=== PATIENT | female | born 2000 | race Two or more races ===

== ENCOUNTER 2025-08-19 13:57 | Outpatient (CLI) | payer MEDICAID ==
[2025-08-19 14:33] LABS: Hematocrit 37.7 % (36.0-46.0); Hemoglobin 13.1 g/dL (12.2-16.2); Mean Corpuscular Hemoglobin 32.3 pg (28.0-32.0); Mean Corpuscular Volume 93.0 fL (80.0-100.0); Nucleated Red Blood Cells % 0.1 %
[2025-08-20 15:07] LABS: Chlamydia Trachomatis, NAA Negative (Negative); Neisseria gonorrhoeae, NAA Negative (Negative)
== END 2025-08-19 17:00 | disposition home or self-care (01) ==
LOC: LAB 13:57
DX: Z34.80 Encounter for supervision of other normal pregnancy, unspecified trimester (principal); Z3A.00 Weeks of gestation of pregnancy not specified
CPT/HCPCS: 36415; 85025; 86780

== ENCOUNTER 2025-08-26 14:16 | Observation (INO) | payer MEDICAID, SELFPAY ==
[~2025-08-26] VITALS: Ht 165.1 cm; Wt 96.2 kg
[2025-08-26 15:02] LABS: Hematocrit 40.0 % (36.0-46.0); Hemoglobin 13.8 g/dL (12.2-16.2); Mean Corpuscular Hemoglobin 32.1 pg (28.0-32.0); Mean Corpuscular Volume 92.7 fL (80.0-100.0); Nucleated Red Blood Cells % 0.0 %
[2025-08-26 15:19] LABS: Alanine Aminotransferase 17 U/L (7-40); Albumin 4.1 g/dL (3.2-4.8); Anion Gap 10 (5-15); BUN/Creatinine Ratio 13.8 (10.0-20.0); Bilirubin, Total 0.4 mg/dL (0.2-1.0); Calcium 9.5 mg/dL (8.7-10.4); Carbon Dioxide 23 mmol/L (20-31); Chloride 106 mmol/L (98-107); Glucose 78 mg/dL (74-106); Potassium 3.8 mmol/L (3.5-5.1); Sodium 139 mmol/L (136-145); Total Protein 6.4 g/dL (5.7-8.2); Uric Acid 3.5 mg/dL (3.1-7.8)
[2025-08-26 15:20] LABS: Alkaline Phosphatase 128 U/L (46-116); Blood Urea Nitrogen 8 mg/dL (9-23); INR 0.9 (0.9-1.15); Partial Thromboplastin Time 26.0 SEC (24.5-34.5); Prothrombin Time 9.6 sec (9.3-11.8)
--- NOTE | 2025-08-26 15:23 | DVH ---
CLINICAL HISTORY: -induced hypertension. COMPARISON: US COMPLETE ANATOMY SCAN on DOS: 04/23/25 TECHNIQUE: biophysical profile was performed. Transabdominal sonographic images of the fetus were obtained. FINDINGS: The fetus is in cephalic position. heart rate measures 145 BPM. Amniotic fluid index measures 9.5 cm. The placenta is anterior in position without evidence of previa or abruption. Limited visualization of the cervix. The cervix appears grossly closed and measures 3.0 cm in length. BPP profile is an overall score of 8/8, with 2/2 points for breathing, with at least one episode of breathing over a 30 second duration during a 30 minute observation, 2/2 points for movements, with 3 or more discrete body or limb movements, 2/2 points for tone, with one or more episodes of extremity extension with return to flexion, or opening and closing of hand, and 2/2 points for amniotic fluid, with at least 1 pocket of amniotic fluid that measures 2 cm in 2 perpendicular planes. IMPRESSION: BPP score of 8/8.
[2025-08-26 16:19] LABS: Protein, Urine 7.1 mg/dL (1-14)
[2025-08-26 16:26] LABS: Urine Protein, UAD Negative (Negative)
--- NOTE | 2025-08-26 22:14 | DVHDS2 ---
Discharge Summary Date of Admission Aug 26, 2025 at 14:27 Date of Discharge: Aug 26, 2025 Admitting Diagnosis 37 weeks pressure rule out labor Wounds: none Labs/Diagnostic Data: Laboratory Results Test 08/26/25 14:43 08/26/25 14:42 White Blood Count 13.4 10^3/uL (4.4-10.8) Red Blood Count 4.31 10^6/uL (4.0-5.20) Hemoglobin 13.8 g/dL (12.2-16.2) Hematocrit 40.0 % (36.0-46.0) Mean Corpuscular Volume 92.7 fL (80.0-100.0) Mean Corpuscular Hemoglobin 32.1 pg (28.0-32.0) Mean Corpuscular Hemoglobin Concent 34.6 g/dL (32.0-36.0) Red Cell Distribution Width 13.9 % (11.8-14.3) Platelet Count 188 10^3/uL (140-450) Mean Platelet Volume 8.6 fL (6.9-10.8) Neutrophils (%) (Auto) 78.0 % (37.0-80.0) Lymphocytes (%) (Auto) 12.9 % (10.0-50.0) Monocytes (%) (Auto) 7.5 % (0.0-12.0) Eosinophils (%) (Auto) 1.0 % (0.0-7.0) Basophils (%) (Auto) 0.6 % (0.0-2.0) Neutrophils # (Auto) 10.5 10 ^3/uL (1.6-8.6) Lymphocytes # (Auto) 1.7 10 ^3/uL (0.4-5.4) Monocytes # (Auto) 1.0 10 ^3/uL (0-1.3) Eosinophils # (Auto) 0.1 10 ^3/uL (0-0.8) Basophils # (Auto) 0.1 10 ^3/uL (0-0.2) Nucleated Red Blood Cells 0.0 % Prothrombin Time 9.6 sec (9.3-11.8) Prothrombin Time INR 0.90 (0.9-1.15) Activated Partial Thromboplast Time 26.0 SEC (24.5-34.5) Sodium Level 139 mmol/L (136-145) Potassium Level 3.8 mmol/L (3.5-5.1) Chloride Level 106 mmol/L (98-107) Carbon Dioxide Level 23 mmol/L (20-31) Anion Gap 10 (5-15) Blood Urea Nitrogen 8 mg/dL (9-23) Creatinine 0.58 mg/dL (0.550-1.02) Glomerular Filtration Rate Calc 128 mL/min (>90) BUN/Creatinine Ratio 13.8 (10.0-20.0) Serum Glucose 78 mg/dL (74-106) Uric Acid 3.5 mg/dL (3.1-7.8) Calcium Level 9.5 mg/dL (8.7-10.4) Total Bilirubin 0.4 mg/dL (0.2-1.0) Aspartate Amino Transferase (AST) 22 U/L (13-40) Alanine Aminotransferase (ALT) 17 U/L (7-40) Alkaline Phosphatase 128 U/L (46-116) Total Protein 6.4 g/dL (5.7-8.2) Albumin 4.1 g/dL (3.2-4.8) Urine Color Light-yellow (Yellow) Urine Clarity Turbid (Clear) Urine pH 7.0 (5.0-9.0) Urine Specific [place] 1.008 (1.001-1.035) Urine Protein Negative (Negative) Urine Ketones Negative (Negative) Urine Blood Negative /uL (Negative) Urine Nitrite Negative (Negative) Urine Bilirubin Negative (Negative) Urine Urobilinogen Normal mg/dL (Negative) Urine Leukocyte Esterase 3+ /uL (Negative) Urine RBC 7 /hpf (0 - 4) Urine Microscopic WBC 2 /HPF (0-5) Urine Squamous Epithelial Cells Few /hpf (<5) Urine Bacteria Few /hpf (None Seen) Urine Creatinine 28.58 mg/dL (30.0-125.0) Urine Protein/Creatinine Ratio 0.25 Urine Glucose Normal mg/dL (Normal) Urine Total Protein 7.1 mg/dL (1-14) Other Laboratory Tests 08/26/25 14:43 Brief Hx & Hospital Course: NST reassuring Operations or Procedures NST BPP reassuring Condition at Discharge: Good Final Diagnosis/Problems List 37 + weeks reassuring Discharge Disposition: Home Discharge Instruct/Medications Diet: Regular Activity: No Restrictions, As Tolerated Follow Up/Referral: as scheduled Medications: resume home meds No Active Prescriptions or Reported Meds Discharge Statement: "Patient was advised to return to the ER or call 911 if any headaches, dizziness, shortness of breath, chest pain, abdominal pain, bleeding, fevers, or worsening of medical condition. Patient was counseled about treatment plan, medications, possible side effects, patientverbalized understanding. All questions were answered to the best of my ability. This discharge took greater then 30 minutes in planning, reviewing documentation, counseling the patient, and discussing with other team members." ASSESSMENT ASSESSMENT Assessment Visit Coding OBGYN Date of Service: Aug 26, 2025 Billing Provider: CHIRAG BOND DO INFORMATION SUPPORT PROJECT MANAGER Common Visit Codes: [id number] INP/OBS CARE(HIGH), 24701-UMS/OBS SAME DATE (LOW), 48252-DQA/OBS SAME DATE (MOD) INFORMATION SUPPORT PROJECT MANAGER Procedure Codes: 37402-15- NON-STRESS TEST CHIRAG BOND DO Aug 26, 2025 22:14
== END 2025-08-26 17:03 | disposition home or self-care (01) ==
LOC: LDRP 14:16 → UNDOADMOB 14:16 → LDRP 14:27
PROVIDERS: ADMIT Obstetrics & Gynecology; ATTEND Obstetrics & Gynecology
DX: O26.893 Other specified pregnancy related conditions, third trimester (principal); M79.89 Other specified soft tissue disorders; Z3A.37 37 weeks gestation of pregnancy; Z98.890 Other specified postprocedural states
CPT/HCPCS: 36415; 76818; 80053; 81001; 81002; 82570; 84156; 84550; 85025; 85610; 85730; 94760; A4649; G0378; 59025; 76819

== ENCOUNTER 2025-09-04 20:44 | Inpatient (IN) | payer SELFPAY ==
[~2025-09-04] VITALS: Ht 165.1 cm; Wt 95.3 kg
--- NOTE | 2025-09-04 22:53 | DVH ---
LIMITED OB ULTRASOUND > 14 WKS: HISTORY: ANGELY and EFW TECHNIQUE: Multiple real-time grayscale images of the gravid uterus with duplex Doppler color flow and M-mode spectral analysis. COMPARISON: None FINDINGS: IUP single gestation with cardiac activity at 38 weeks 3 days based on composite averages of the BPD, head circumference, abdominal circumference and femur length Estimated weight: 01/23/2023 grams heart rate: 153 beats per minute ANGELY: 6.2 cm Cervix: Obscured, no evident abnormality. Cephalic presentation. Anterior placenta. No evidence of previa or abruption. IMPRESSION: 1. Intrauterine gestation with cardiac activity at 38 weeks 3 days AUA corresponding to an LESLY of 09/15/2025. 2. No evidence of gestational complication. Borderline low amniotic fluid index may relate to rupture of membranes.
[2025-09-04] MEDS: CALCIUM CARB 500 MG CHEW TAB PO ONE (23:30)
[2025-09-04 23:39] LABS: Vaginal Bacteria Moderate; Vaginal Clue Cells Moderate; Vaginal Epithelial Cells Few; Vaginal Trichomonas Not Present
[2025-09-05] VITALS (10 sets, daily range): BP systolic 98–111; BP diastolic 50–57; PULSE 63–90; RESP 14–18; TEMP 98.2; O2SAT 94–100
[2025-09-05] MEDS: ONDANSETRON HCL 4 MG/2 ML VIAL IV ONE (01:12)
[2025-09-05] MEDS: LACTATED RINGER'S 2,000 ML IV ONE (01:13)
--- NOTE | 2025-09-05 01:46 | DVH ---
INDICATION: repeat ANGELY TECHNIQUE: Limited transabdominal sonographic images of the gestational sac. COMPARISON: Same-day obstetric ultrasound FINDINGS/IMPRESSION: 1. Amniotic fluid index measures 5.5 cm with single deepest pocket of 2.4 cm.
--- NOTE | 2025-09-05 02:14 | DVHHP2 ---
OB CC & HPI Date Date of Admission: Sep 05, 2025 Patient Identification: : 1 Para: 0 EDC: Sep 15, 2025 EGA: 38.4 Chief Complaints: Reason for admission: rupture of membranes (oligohydramnios) History of Present Complaints 25yo IUP@38.3wks presents to OB triage with c/o UCs Q5 min that started at 1800 and 3 gushes of clear fluid starting at 1400. Denies VB/GARBER/vision changes/RUQ pain. Endorses +FM. PNC: Routine PNC at [facility] OB, adequate visits, PNC uncomplicated. GTT wnl, GBS negative. Past Medical History Cardiac: No pertinent Hx Pulmonary: No pertinent Hx Central Nervous System: No pertinent Hx GI: No pertinent Hx Hemotology/Oncology: No pertinent Hx Hepatobiliary: No pertinent Hx Psychiatric: No pertinent Hx Musculoskeletal: No pertinent Hx Rheumotologic: No pertinent Hx Infectious Disease: No peritnent Hx ENT: No pertinent Hx Renal/: No pertinent Hx Endocrine: No pertinent Hx Dermatology: No pertinent Hx Past Surgical History: No pertinent Hx OB History OB History Care: Good Care Ultrasounds: Normal mid trimester US Obstetrical Complications: None Medical Complications: None Allergies: Coded Allergies: NO KNOWN ALLERGIES (Unverified , 08/26/25) Home Meds No Active Prescriptions or Reported Meds Home Meds PNV Family & Social History Family/Social History Past Family/Social History: denies Blood Type: O+ Rubella: immune RPR/VDRL: Negative GBS Status: Negative HBsAG: Negative Review of Systems Constitutional: No symptom reported Ears, Nose, & Throat: No symptom reported Eyes: No symptom reported Pulmonary/Respiratory: No symptom reported Cardiovascular: No symptom reported Gastrointestinal: No symptom reported Genitourinary: No symptom reported Musculoskeletal: No symptom reported Skin: No symptom reported Psychiatric: No symptom reported Endocrine: No symptom reported Hemotologic/Lymphatic: No symptom reported OB Admission Exam Physical Exam Vitals: VSS, see CPN +nitrazine (twice) -pooling Laboratory Tests Test 09/04/25 21:20 09/04/25 23:13 09/05/25 00:55 09/05/25 02:10 Range/Units Placental [id number] Negative Negative Vaginal WBC (Wet Prep) Few Vaginal RBC (Wet Prep) Moderate Vaginal Epithelial Cells (Wet Prep) Few Vaginal Bacteria (Wet Prep) Moderate Vaginal Trichomonas (Wet Prep) Not present Vaginal Yeast (Wet Prep) None seen Vaginal Clue Cells (Wet Prep) Moderate Urine Color Colorless Yellow Urine Clarity Turbid H Clear Urine pH 7.0 5.0-9.0 Urine Specific [place] 1.005 1.001-1.035 Urine Protein Trace H Negative Urine Ketones Negative Negative Urine Blood 3+ H Negative /uL Urine Nitrite Negative Negative Urine Bilirubin Negative Negative Urine Urobilinogen Normal Negative mg/dL Urine Leukocyte Esterase 3+ Negative /uL Urine RBC 25 0 - 4 /hpf Urine WBC Clumps Present None Seen /hpf Urine Microscopic WBC 51 H 0-5 /HPF Urine Squamous Epithelial Cells Mod <5 /hpf Urine Bacteria Few H None Seen /hpf Urine Glucose Normal Normal mg/dL Urine Opiates Screen Neg NEGATIVE Urine Fentanyl Screen Neg NEGATIVE Urine Barbiturates Screen Neg NEGATIVE Urine Phencyclidine Screen Neg NEGATIVE Urine Amphetamines Screen Neg NEGATIVE Urine Benzodiazepines Screen Neg NEGATIVE Urine Cocaine Screen Neg NEGATIVE Urine Cannabinoids Screen Neg NEGATIVE Test 09/05/25 02:34 Range/Units White Blood Count 12.8 H 4.4-10.8 10^3/uL Red Blood Count 4.23 4.0-5.20 10^6/uL Hemoglobin 13.5 12.2-16.2 g/dL Hematocrit 39.3 36.0-46.0 % Mean Corpuscular Volume 92.9 80.0-100.0 fL Mean Corpuscular Hemoglobin 32.0 28.0-32.0 pg Mean Corpuscular Hemoglobin Concent 34.4 32.0-36.0 g/dL Red Cell Distribution Width 13.8 11.8-14.3 % Platelet Count 187 140-450 10^3/uL Mean Platelet Volume 9.1 6.9-10.8 fL Neutrophils (%) (Auto) 83.9 H 37.0-80.0 % Lymphocytes (%) (Auto) 11.3 10.0-50.0 % Monocytes (%) (Auto) 4.1 0.0-12.0 % Eosinophils (%) (Auto) 0.3 0.0-7.0 % Basophils (%) (Auto) 0.4 0.0-2.0 % Neutrophils # (Auto) 10.8 H 1.6-8.6 10 ^3/uL Lymphocytes # (Auto) 1.4 0.4-5.4 10 ^3/uL Monocytes # (Auto) 0.5 0-1.3 10 ^3/uL Eosinophils # (Auto) 0 0-0.8 10 ^3/uL Basophils # (Auto) 0 0-0.2 10 ^3/uL Nucleated Red Blood Cells 0.0 % Prothrombin Time 9.6 9.3-11.8 sec Prothrombin Time INR 0.90 0.9-1.15 Activated Partial Thromboplast Time 26.2 24.5-34.5 SEC Sodium Level 137 136-145 mmol/L Potassium Level 3.4 L 3.5-5.1 mmol/L Chloride Level 105 98-107 mmol/L Carbon Dioxide Level 20 20-31 mmol/L Anion Gap 12 5-15 Blood Urea Nitrogen 5 L 9-23 mg/dL Creatinine 0.58 0.550-1.02 mg/dL Glomerular Filtration Rate Calc 128 >90 mL/min BUN/Creatinine Ratio 8.6 L 10.0-20.0 Serum Glucose 97 74-106 mg/dL Calcium Level 9.4 8.7-10.4 mg/dL Total Bilirubin 0.4 0.2-1.0 mg/dL Aspartate Amino Transferase (AST) 28 13-40 U/L Alanine Aminotransferase (ALT) 17 7-40 U/L Alkaline Phosphatase 138 H 46-116 U/L Total Protein 6.1 5.7-8.2 g/dL Albumin 3.9 3.2-4.8 g/dL Treponema pallidum Antibody Non-reactive Negative Hepatitis C Antibody Negative Negative Vital Signs Date Time Temp Pulse Resp B/P (MAP) Pulse Ox O2 Delivery O2 Flow Rate FiO2 09/05/25 05:35 127/58 HEENT: TMs Normal, Fontanelles Normal, Nasal Mucosa Normal, Eyes non-injected, Oropharynx Normal, PERRLA, Moist Membranes, EOMI Heart: Rhythm Normal Lungs: Clear Abdomen: Gravid Extremities: Normal Reflexes: Normal Pelvic Exam: SVE by RN: initially 1.5/30/-2 then changed to 1.5/80/-1 EFW via sono: 3423 g, vertex Membranes: Ruptured Amniotic Fluid: Clear Heart Rate: 150's Accelerations: Accelerations Present Decelerations: No Decelerations Assessment Clinician Variability: Average (6-25) Contractions on Admission: < 5 Minutes Apart Intensity: Moderate OB Plan Plan Admitting Diagnosis: SROM/oligohydramnios Plan: Other (labor augmentation) Induction Methd: Pitocin protocol Other Plan: A: 25yo IUP@38.3wks Labor augmentation SROM/oligohydramnios Category I EFM GBS negative P: Admit to L&D Informed consent obtained Start IV pitocin per order monitoring per order Routine labs ordered Pain mgmt PRN Frequent position changes in and out of bed encouraged Limit SVE unless necessary Intrauterine resuscitation PRN Anticipate Dr. Fulton consulted, agrees with POC. Visit Coding OBGYN Date of Service: Sep 05, 2025 Billing Provider: CAIT JONES CNM NEWS WIRE PHOTO OPERATOR Common Visit Codes: [id number] INP/OBS CARE (MOD) NEWS WIRE PHOTO OPERATOR Procedure Codes: 56274-50- NON-STRESS TEST CAIT JONES CNM Sep 05, 2025 02:14
[2025-09-05] MEDS ORDERED: TERBUTALINE SULFATE 1 MG/ML 1ML VIAL SC PRN (02:30)
[2025-09-05] MEDS ORDERED: BUTORPHANOL TARTRATE 2 MG/1 ML VIAL IV PRN ×2 (02:30)
[2025-09-05] MEDS ORDERED: LIDOCAINE 2%HCL (LOCAL ANESTH.) INJ 20ML MDV IJ PRN (02:30)
[2025-09-05 03:12] LABS: Alanine Aminotransferase 17 U/L (7-40); Albumin 3.9 g/dL (3.2-4.8); Anion Gap 12 (5-15); BUN/Creatinine Ratio 8.6 (10.0-20.0); Calcium 9.4 mg/dL (8.7-10.4); Chloride 105 mmol/L (98-107); Glucose 97 mg/dL (74-106); Hematocrit 39.3 % (36.0-46.0); Hemoglobin 13.5 g/dL (12.2-16.2); Mean Corpuscular Hemoglobin 32.0 pg (28.0-32.0); Mean Corpuscular Volume 92.9 fL (80.0-100.0); Nucleated Red Blood Cells % 0.0 %; Sodium 137 mmol/L (136-145); Total Protein 6.1 g/dL (5.7-8.2)
[2025-09-05 03:12] LABS: Amphetamine Screen, Urine Neg (NEGATIVE); Barbiturate Scree,Urine Neg (NEGATIVE); Benzodiazephine Screen, Urine Neg (NEGATIVE); Cannabinoid Screen, Urine Neg (NEGATIVE); Cocaine Screen, Urine Neg (NEGATIVE); Opiate Scree,Urine Neg (NEGATIVE); Phencyclidine Screen, Urine Neg (NEGATIVE)
[2025-09-05 03:13] LABS: Bilirubin, Total 0.4 mg/dL (0.2-1.0)
[2025-09-05 03:16] LABS: Alkaline Phosphatase 138 U/L (46-116); Blood Urea Nitrogen 5 mg/dL (9-23); Carbon Dioxide 20 mmol/L (20-31); Potassium 3.4 mmol/L (3.5-5.1)
[2025-09-05 03:19] LABS: INR 0.9 (0.9-1.15); Partial Thromboplastin Time 26.2 SEC (24.5-34.5); Prothrombin Time 9.6 sec (9.3-11.8)
[2025-09-05 03:44] LABS: Urine Protein, UAD TRACE (Negative); Urine WBC Clumps PRESENT /hpf (None Seen)
[2025-09-05] MEDS: LIDOCAINE HCL 2 %PF INJ 10ML AMP IJ ONE ×2 (04:15→13:53)
[2025-09-05] MEDS: NALOXONE HCL 0.4 MG/ML VIAL IV ONE (04:15)
[2025-09-05] MEDS: PHISODERM TOP SOLN 240ML BTL TOP PRN (04:44)
[2025-09-05] MEDS: WITCH HAZEL-GLYCERIN PAD TOP PRN (04:44)
[2025-09-05] MEDS: DERMOPLAST 60ML BOTTLE TOP PRN (04:44)
[2025-09-05] MEDS: LACTATED RINGER'S 1,000 ML IV SCH (04:50)
[2025-09-05] MEDS: fentaNYL CITRATE 100 MCG/2 ML VL IV ONE (05:35)
--- NOTE | 2025-09-05 05:36 | EPIDURAL ---
Anesthesia Procedural Note - Epidural Informed consent obtained?: Yes Medication Administered: Fentanyl 100 mcg Sterile prept drape: Yes Spinal level of insertion: L3-L4 Test dose of lidocaine & Epine: Negative Infusion started: Yes Start time: 04:44 End time: 13:55 Procedure description Procedure description: Called in for PCEA placement for this 25 y/o , admitted for SROM and in active labor, requesting PCEA for labor and delivery. Chart reviewed, H&P done, informed consent obtained, all questions answered and Ms. Osman wants to proceed with PCEA. Ms. Osman positioned sitting with monitors on. Bolus IVF given. Area prepped and draped. Lidocaine 1% for skin infiltration. With Touhy G18, epidural space identified with loss of resistance with saline. Catheter threaded easily and secured. Test dose negative x 2. Ropivacaine 0.2% infusion started. Pain score from 8/10 decreased to 2/10. Vital signs remained stable throughout. Delivered a single live baby with via C/section secondary to non-reassuring heart rate and chorioamnionitis. APGARs 9 & 9 at 1 & 5 minutes respectively. Epidural catheter pulled with tip intact. No oozing, redness, or swelling around the epidural area. Ms. Osman is back to baseline, able to ambulate and michel with her baby. Total epidural time; 0800 - 9232 Total face to face time: 5271 - 8563 IDA CAMPOS MD Sep 05, 2025 05:36
[2025-09-05] MEDS: ROPIVACAINE HCL 100 ML ONE ×2 (05:37→11:57)
[2025-09-05] MEDS: ceFAZolin 2 GM/D5W50ml 50 ML IV ONE (05:37)
--- NOTE | 2025-09-05 07:05 | DVHPN2 ---
Chief Complaints Patient reports: No new complaints Nursing reports: No new complaints Objective Vitals Vital Signs Date Time Temp Pulse Resp B/P (MAP) Pulse Ox O2 Delivery O2 Flow Rate FiO2 09/05/25 05:35 127/58 Medications Current Medications Medications (Trade) Dose Ordered Sig/Margarita Route PRN Reason Start Time Stop Time Status Last Admin Benzocaine (Dermoplast) 1 applic PRN PRN TOP PERINEAL AREA DISCOMFORT 09/05/25 02:30 09/05/25 04:44 Butorphanol Tartrate (Stadol Injection) 1 mg Q4HPRN PRN IV MODERATE PAIN (4-6 PAIN SCALE) 09/05/25 02:30 Butorphanol Tartrate (Stadol Injection) 2 mg Q4HPRN PRN IV SEVERE PAIN (7-10 PAIN SCALE) 09/05/25 02:30 Cefazolin Sodium 50 ml @ 100 mls/hr Q8HR IV 09/05/25 14:00 Lactated Ringer's 1,000 ml @ 125 mls/hr Q8H IV 09/05/25 02:30 09/05/25 04:50 Lidocaine HCl (Xylocaine) 20 ml ONCE PRN IJ PERINEAL AREA DISCOMFORT 09/05/25 02:30 Ondansetron HCl (Zofran) 4 mg Q4HPRN PRN IV NAUSEA / VOMITING 09/05/25 05:15 Oxytocin 1,000 ml @ 6 ml/hr Q24H IV 09/05/25 02:30 Sodium Lauryl Sulfate (Phisoderm) 240 ml PRN PRN TOP PERINEAL AREA DISCOMFORT 09/05/25 02:30 09/05/25 04:44 Terbutaline Sulfate (Brethine Inj) 0.25 mg ONCE PRN SC Uterine tachysystole 09/05/25 02:30 Witch Nayana (Tucks) 1 pad PRN PRN TOP PERINEAL AREA DISCOMFORT 09/05/25 02:30 09/05/25 04:44 Others ve-2.5cm/80/-1 Studies Laboratory Tests 09/05/25 02:34 Test 09/05/25 02:34 Range/Units Serum Glucose 97 74-106 mg/dL Ass/Plan Assessment iup at 38wks iol for oligo Plan start pitocin Visit Coding OBGYN Date of Service: Sep 05, 2025 Billing Provider: GRACIA NORIEGA DO IMMIGRATION SERVICES OFFICER Common Visit Codes: 69900-[id number] INP/OBS CARE(HIGH) IMMIGRATION SERVICES OFFICER Procedure Codes: 68964-99- NON-STRESS TEST GRACIA NORIEGA DO Sep 05, 2025 07:05
[2025-09-05] MEDS: LACT. RINGERS/OXYTOCIN 20UNITS 1,000 ML IV SCH (07:47)
--- NOTE | 2025-09-05 11:35 | DVHPN2 ---
Chief Complaints Patient reports: No new complaints Nursing reports: No new complaints Objective Vitals Vital Signs Date Time Temp Pulse Resp B/P (MAP) Pulse Ox O2 Delivery O2 Flow Rate FiO2 09/05/25 05:35 127/58 Medications Current Medications Medications (Trade) Dose Ordered Sig/Margarita Route PRN Reason Start Time Stop Time Status Last Admin Benzocaine (Dermoplast) 1 applic PRN PRN TOP PERINEAL AREA DISCOMFORT 09/05/25 02:30 09/05/25 04:44 Butorphanol Tartrate (Stadol Injection) 1 mg Q4HPRN PRN IV MODERATE PAIN (4-6 PAIN SCALE) 09/05/25 02:30 Butorphanol Tartrate (Stadol Injection) 2 mg Q4HPRN PRN IV SEVERE PAIN (7-10 PAIN SCALE) 09/05/25 02:30 Cefazolin Sodium 50 ml @ 100 mls/hr Q8HR IV 09/05/25 14:00 Lactated Ringer's 1,000 ml @ 125 mls/hr Q8H IV 09/05/25 02:30 09/05/25 04:50 Lidocaine HCl (Xylocaine) 20 ml ONCE PRN IJ PERINEAL AREA DISCOMFORT 09/05/25 02:30 Ondansetron HCl (Zofran) 4 mg Q4HPRN PRN IV NAUSEA / VOMITING 09/05/25 05:15 Oxytocin 1,000 ml @ 6 ml/hr Q24H IV 09/05/25 02:30 09/05/25 07:47 Sodium Lauryl Sulfate (Phisoderm) 240 ml PRN PRN TOP PERINEAL AREA DISCOMFORT 09/05/25 02:30 09/05/25 04:44 Terbutaline Sulfate (Brethine Inj) 0.25 mg ONCE PRN SC Uterine tachysystole 09/05/25 02:30 Witch Nayana (Tucks) 1 pad PRN PRN TOP PERINEAL AREA DISCOMFORT 09/05/25 02:30 09/05/25 04:44 Others ve-5cm/80/-2 per nursing staff Studies Laboratory Tests 09/05/25 02:34 Test 09/05/25 02:34 Range/Units Serum Glucose 97 74-106 mg/dL Ass/Plan Assessment iup at 38wks iol for oligo Plan supportive care Visit Coding OBGYN Date of Service: Sep 05, 2025 Billing Provider: GRACIA NORIEGA DO PRESS WRITER Common Visit Codes: [id number] INP/OBS CARE(HIGH) PRESS WRITER Procedure Codes: 78517-88- NON-STRESS TEST GRACIA NORIEGA DO Sep 05, 2025 11:35
[2025-09-05] MEDS ORDERED: ROPIVACAINE HCL 100 ML SCH (11:45)
[2025-09-05] MEDS: ACETAMINOPHEN 500 MG TAB or CAP PO PRN (13:19)
[2025-09-05] MEDS ORDERED: MORPHINE SULF PF 5 MG/10 ML VIAL ONE (13:53)
[2025-09-05] MEDS ORDERED: ONDANSETRON HCL 4 MG/2 ML VIAL ONE (13:53)
--- NOTE | 2025-09-05 14:05 | DVHHP ---
CHIEF COMPLAINT: Induction of labor for oligohydramnios. HISTORY OF PRESENT ILLNESS: The patient is a 25-year-old woman who presented with an EDC of 09/15/2025. Estimated gestational age of 38 and 6/7 weeks, admitted for induction of labor secondary to oligohydramnios. The patient received one Cytotec followed by some Pitocin, but started having deep variable and late decelerations. Her fluid was noted to be 5 cm. Subsequently, Pitocin was stopped. The patient remained at 5 cm, 80%, -2 despite adequate contractions and started with chorioamnionitis. The baby has no tolerance to the Pitocin. Subsequently, the patient is taken for primary low transverse section due to fetus at risk and nonreassuring heart tracing. PAST MEDICAL HISTORY: None. PAST SURGICAL HISTORY: None. SOCIAL HISTORY: None. FAMILY HISTORY: None. OBSTETRIC AND GYNECOLOGIC HISTORY: Primigravid. ALLERGIES: No known drug allergies. REVIEW OF SYSTEMS: Consistent with HPI. PHYSICAL EXAMINATION: VITAL SIGNS: Stable, afebrile currently. HEENT: Within normal limits. CARDIOVASCULAR: Regular rate and rhythm. LUNGS: Clear to auscultation. BREASTS: Symmetrical. No masses. ABDOMEN: Gravid. Positive heart. PELVIC: 5 cm, 80%, -2. EXTREMITIES: No clubbing, cyanosis, or edema. IMPRESSION: ? Intrauterine at 38+ weeks, induction of labor for oligohydramnios. ? Suspected prolonged rupture of membranes, chorioamnionitis. ? intolerance to Pitocin/labor, fetus at risk. PLAN: Primary low transverse section. Informed consent obtained. Risks, complications of surgery including infection, bleeding, hematoma formation, perforation of uterus, risks of anesthesia, and need for further surgery discussed. The patient's options were reviewed. All questions answered. The patient fully understands. She wishes to proceed with planned procedure. Esther Fulton DO MZ/TONY TID: [id number] RECEIPT: [id number]
[2025-09-05] MEDS ORDERED: ONDANSETRON HCL 4 MG/2 ML VIAL IV PRN ×2 (14:45→15:30)
[2025-09-05] MEDS: GUM (CHEWING) 1 GUM CHEW CHEW ONE (14:45)
[2025-09-05] MEDS: LACT. RINGERS/OXYTOCIN 20UNITS 1,000 ML IV ONE (14:45)
--- NOTE | 2025-09-05 14:48 | DVHOP2 ---
Operative Report DATE OF OPERATION: 09/05/25 PREOPERATIVE DIAGNOSES: iup at 38+wks induction of labor oligo,fetus at risk nonreassuring fht,chorioamnionitia POSTOPERATIVE DIAGNOSES: same,op SURGEON: Esther Fulton D.O./viviana ANESTHESIOLOGIST: kathy TYPE OF ANESTHESIA : spinal CONSENT: The patient was informed of the risks and benefits of the procedure. The patient was informed of the risks and benefits of the procedure. These include but are not limited to , complications of anesthesia, postoperative infection, incomplete relief of symptoms, recurrence of symptoms, damage to blood vessels, nerves and tendons, deep venous thrombosis, pulmonary embolism and possible need for repeat surgery in the future. FINDINGS: Baby [b] with Apgars of [9] and [9]. Grossly normal appearing tubes and ovaries.op,scant fluid.cord blood gases obtanied PROCEDURES: Primary low transverse section. PROCEDURE IN DETAIL: The patient was taken to the operating room. She already had an epidural in place. She was then placed in supine position with a leftward tilt. A Pfannenstiel skin incision was made 2 cm above the symphysis pubis. This incision was carried to the underlying layer of fascia. The fascia was nicked in the midline. The incision was extended laterally. The superior aspect of the fascial incision was grasped and elevated. The same procedure was done to the inferior aspect of the fascial incision. The rectus muscles were then in the midline. Peritoneum was identified and entered. Peritoneal incision was extended superiorly and inferiorly with good visualization of the bladder. Bladder blade was inserted. Vesicouterine peritoneum was identified and entered. Lower uterine segment was incised in a transverse fashion. The was delivered from vertex presentation. Infant was baby [b] with Apgars [9] and [9]. Placenta was then removed manually. Uterus was exteriorized and cleared of all clots and debris. The incision was repaired using 0 Vicryl in a double-layered fashion. No bleeding was noted. Uterus was then returned to the abdomen. The gutters were cleared off all clots and debris. Peritoneum was closed using 0 Vicryl, fascia was closed using 0 Maxon, and skin was closed using marisela. The patient tolerated the procedure well. She was taken to the recovery room in stable condition. ESTIMATED BLOOD LOSS: Estimated blood loss was noted to be 1000 mL. Visit Coding OBGYN Date of Service: Sep 05, 2025 Billing Provider: ESTHER FULTON DO HEALTH CLUB ATTENDANT Common Visit Codes: [id number] INP/OBS CARE (HIGH) HEALTH CLUB ATTENDANT Procedure Codes: [id number] DELIVERY ONLY ESTHER FULTON DO Sep 05, 2025 14:48
--- NOTE | 2025-09-05 14:49 | POSTOP ---
Post-Operative Note Post-Operative Note Preop Diagnosis iup at 38wks iol for oligo,chorio,fetus at risk Postop Diagnosis: same Operation performed pltcs Specimen baby boy,apgars 9-9,oligo,op Anesthesia: Regional Anesthesiologist: marybethgyyancy Blood Loss(fluid mgmt) 800ml Surgeon Esther Fulton Family Partner viviana Implant na Complications & Mgmt none Date 09/05/25 Time 14:48 Visit Coding OBGYN Date of Service: Sep 05, 2025 Billing Provider: ESTHER FULTON DO SOLE TIER Common Visit Codes: [id number] INP/OBS CARE (HIGH) SOLE TIER Procedure Codes: 06179-[id number] DELIVERY ONLY ESTHER FULTON DO Sep 05, 2025 14:49
[2025-09-05] MEDS ORDERED: HYDR-4072 PO (14:52)
[2025-09-05] MEDS ORDERED: DOCU-94 PO (14:52)
[2025-09-05] MEDS ORDERED: CEPH500T PO (14:52)
[2025-09-05] MEDS ORDERED: IBUP-1456 PO (14:52)
[2025-09-05] MEDS: ONDANSETRON HCL 4 MG/2 ML VIAL IV PRN (15:22)
[2025-09-05] MEDS: ceFAZolin 1GM/50ML 50 ML IV SCH (15:23)
[2025-09-05] MEDS ORDERED: HYDROmorphone HCL 2 MG/ML VL/or syr IV PRN (15:30)
[2025-09-05] MEDS ORDERED: MEPERIDINE HCL (25 MG/ML) 1ML VIAL IV PRN (15:30)
[2025-09-05] MEDS ORDERED: ACETAMINOPHEN IV 1000 MG/100ML (10MG/ML) IV PRN (15:30)
[2025-09-05] MEDS ORDERED: METOCLOPRAMIDE HCL 5MG/ml INJ 2ml VIAL IV PRN (15:30)
[2025-09-05] MEDS: ACETAMINOPHEN IV 1000 MG/100ML (10MG/ML) IV PRN (20:18)
[2025-09-05 21:14] LABS: Hematocrit 29.4 % (36.0-46.0); Hemoglobin 10.2 g/dL (12.2-16.2); Mean Corpuscular Hemoglobin 32.5 pg (28.0-32.0); Mean Corpuscular Volume 93.4 fL (80.0-100.0); Nucleated Red Blood Cells % 0.0 %
[2025-09-05] MEDS ORDERED: NALBUPHINE HCL 10 MG/1ml INJECTION IV PRN (21:15)
[2025-09-05] MEDS: diphenhydrAMINE HCL 50 MG/1 ML VL IV PRN (21:37)
[2025-09-06] VITALS (20 sets, daily range): BP systolic 90–117; BP diastolic 50–62; PULSE 63–73; RESP 14–20; TEMP 97.8–98.5; O2SAT 95–99
[2025-09-06] MEDS: HYDROmorphone HCL 2 MG/ML VL/or syr IV PRN (00:39)
[2025-09-06 06:37] LABS: Hematocrit 31.7 % (36.0-46.0); Hemoglobin 11.0 g/dL (12.2-16.2); Mean Corpuscular Hemoglobin 32.4 pg (28.0-32.0); Mean Corpuscular Volume 93.9 fL (80.0-100.0); Nucleated Red Blood Cells % 0.1 %
--- NOTE | 2025-09-06 06:57 | DVHPN2 ---
Progress Note Date Seen: Sep 06, 2025 Subjective Yaz is resting in bed with baby swaddled in her arms. Pt partner on couch asleep. Patient was able to rest a bit through the night and feels like she may have to use the bathroom soon SUBJECTIVE: -Lochia minimal -Clear liquid diet well tolerated. -Ambulating well w/o feeling dizzy or lightheaded -Solo recently removed -Pain relieved with IV medication PRN -Passing flatus but no BM yet. - w/o problem vital signs Vital Sign Date Time Temp Pulse Resp B/P (MAP) Pulse Ox O2 Delivery O2 Flow Rate FiO2 09/06/25 05:30 64 16 98 09/06/25 03:19 107/55 (72) 09/06/25 03:05 98.5 98.5 09/05/25 19:00 Room Air 09/05/25 15:12 0 95 Total Intake and Output 09/05/25 09/05/25 09/06/25 15:00 23:00 07:00 Intake Total 3000 ml Output Total 1750 ml 1400 ml Balance -1750 ml 1600 ml medications Current Medications Medications Dose Ordered Sig/Margarita Route Start Time Stop Time Status Last Admin Dose Admin Lactated Ringer's 1,000 ml @ 125 mls/hr Q8H IV 09/05/25 02:30 09/06/25 01:07 125 MLS/HR Jagdeepch Nayana 1 pad PRN PRN TOP 09/05/25 02:30 09/05/25 04:44 1 PAD Sodium Lauryl Sulfate 240 ml PRN PRN TOP 09/05/25 02:30 09/05/25 04:44 240 ML Benzocaine 1 applic PRN PRN TOP 09/05/25 02:30 09/05/25 04:44 1 APPLIC Butorphanol Tartrate 1 mg Q4HPRN PRN IV 09/05/25 02:30 Hold Butorphanol Tartrate 2 mg Q4HPRN PRN IV 09/05/25 02:30 Hold Lidocaine HCl 20 ml ONCE PRN IJ 09/05/25 02:30 Oxytocin 1,000 ml @ 6 ml/hr Q24H IV 09/05/25 02:30 09/05/25 07:47 3 ML/HR Terbutaline Sulfate 0.25 mg ONCE PRN SC 09/05/25 02:30 Ondansetron HCl 4 mg Q4HPRN PRN IV 09/05/25 05:15 09/05/25 15:22 4 MG Cefazolin Sodium 50 ml @ 100 mls/hr Q8HR IV 09/05/25 14:00 09/05/25 23:45 100 MLS/HR Ropivacaine 100 ml @ 10 mls/hr PRN IV 09/05/25 11:45 UNV Acetaminophen 1,000 mg Q6HP PRN PO 09/05/25 13:00 09/05/25 13:19 1,000 MG Ondansetron HCl 4 mg Q4HP PRN IV 09/05/25 14:45 Acetaminophen 1,000 mg Q8H PRN IV 09/05/25 19:15 09/06/25 04:32 1,000 MG Diphenhydramine HCl 25 mg Q4HP PRN IV 09/05/25 21:15 09/05/25 21:37 25 MG Nalbuphine HCl 10 mg Q4HP PRN IV 09/05/25 21:15 Hydromorphone HCl 1 mg Q4HPRN PRN IV 09/05/25 21:15 09/06/25 00:39 1 MG laboratory and microbiology Laboratory Tests 09/05/25 02:34 Test 09/05/25 02:34 Range/Units Serum Glucose 97 74-106 mg/dL Objective OBJECTIVE: -A&O x4. No apparent distress. Affect appropriate -Afebrile, VSS -Chest: heart and lung sounds normal. -Breasts: Nipples intact w/o cracks or soreness -Abdomen: normal BS, soft, non-tender, no rebound or guarding, fundus firm @ U- 1, -Lower abdominal incision site with dressing dry and intact. No edema, erythema or induration -Extremities: no edema or tenderness Problems(with codes): (1) Status post delivery Assessment/Plan ASSESSMENT 25 yo now Post operative & ppd # 1 s/p Primary Section for intolerance to labor, doing well. Blood Type: O+ Breast feeding Rubella Immune PLAN -Continue pain management with IV medications as previously ordered. Will transition to PO at 24 hour post c/s -Increase fluid intake and fiber in diet to promote regular bowel movements, Laxative PRN -Educated patient on self-care. Encouraged patient to balance activity with rest throughout the day -Continue routine care Plan discussed with: Patient Visit Coding OBGYN Date of Service: Sep 06, 2025 Billing Provider: MARIZOL MILLIGAN CNM [facility] Common Visit Codes: [id number] INP/OBS CARE(MOD) MARIZOL MILLIGAN CNM Sep 06, 2025 06:57
[2025-09-06] MEDS ORDERED: D5W/LACTATED RINGERS 1,000 ML IV SCH (07:45)
[2025-09-06] MEDS ORDERED: SODIUM CHLORIDE 0.9% 1,000 ML IV SCH (07:45)
[2025-09-06] MEDS ORDERED: LACTATED RINGER'S 1,000 ML IV SCH (07:45)
[2025-09-06] MEDS: IBUPROFEN 800 MG TAB PO PRN (08:28)
[2025-09-06] MEDS: HYDROcodone-ACET 5/325MG TAB PO PRN (13:34)
[2025-09-06] MEDS: DOCUSATE SOD 100 MG CAP PO SCH (14:16)
[2025-09-06] MEDS: SIMETHICONE 80 MG CHEWABLE TABLET PO SCH (14:16)
[2025-09-07] VITALS (7 sets, daily range): BP systolic 108–124; BP diastolic 57–78; PULSE 65–81; RESP 16–20; TEMP 97.8–98.3; O2SAT 97–100
--- NOTE | 2025-09-07 06:49 | DVHPN2 ---
Chief Complaints Patient reports: No new complaints Nursing reports: No new complaints Objective Vitals Vital Signs Date Time Temp Pulse Resp B/P (MAP) Pulse Ox O2 Delivery O2 Flow Rate FiO2 09/07/25 03:00 97.9 81 17 108/69 (82) 98 97.9 09/06/25 19:00 Room Air 09/05/25 15:12 0 95 Medications Current Medications Medications (Trade) Dose Ordered Sig/Margarita Route PRN Reason Start Time Stop Time Status Last Admin Acetaminophen/ Hydrocodone Bitart ([place] 5/325MG Tab) 1 tab Q4HPRN PRN PO FOR PAIN 1-6 09/06/25 07:45 Acetaminophen/ Hydrocodone Bitart ([place] 5/325MG Tab) 2 tab Q4HPRN PRN PO FOR PAIN 7-10 09/06/25 07:45 09/07/25 02:48 Dimethicone (Mylicon Tab) 80 mg QID PO 09/06/25 12:00 09/06/25 22:30 Docusate Sodium (Colace Capsule) 100 mg Q12HR PO 09/06/25 10:00 09/06/25 22:30 Ibuprofen (Motrin Tablet) 800 mg Q8HP PRN PO BREAKTHROUGH PAIN 09/06/25 07:45 09/07/25 01:15 General: Normal Abdominal: Normal (Wound clean dry and intact) Extremities: Normal Skin: Normal Neurological: Normal Studies Laboratory Tests 09/06/25 06:00 09/05/25 02:34 Test 09/05/25 02:34 Range/Units Serum Glucose 97 74-106 mg/dL Ass/Plan Assessment POD # 2 stable improved Plan advance care CHIRAG BOND DO Sep 07, 2025 06:49
[2025-09-07] MEDS: ONDANSETRON ODT 4 MG TAB PO PRN (17:00)
[2025-09-07] MEDS: HYDROcodone-ACET 5/325MG TAB PO PRN (22:25)
[2025-09-08 03:00] VITALS: BP 117/68; PULSE 64; RESP 18; TEMP 98.2; O2SAT 99
[2025-09-08 08:08] VITALS: BP 128/78; PULSE 104; RESP 18; O2SAT 98
--- NOTE | 2025-09-08 11:09 | DVHDS2 ---
Discharge Summary Date of Admission Sep 05, 2025 at 02:08 Date of Discharge: Sep 08, 2025 Admitting Diagnosis Intrauterine 38+ weeks induction for oligo nonreassuring heart tones ended up -section had no intraoperative postop complications stable for discharge home postop day 3. 2 anesthesia evaluated to rule out spinal headache which was ruled out. Wounds: Clean dry intact no sign of infection Labs/Diagnostic Data: Laboratory Results Test 09/06/25 06:00 09/05/25 02:34 09/05/25 02:10 09/05/25 00:55 White Blood Count 15.7 10^3/uL (4.4-10.8) Red Blood Count 3.38 10^6/uL (4.0-5.20) Hemoglobin 11.0 g/dL (12.2-16.2) Hematocrit 31.7 % (36.0-46.0) Mean Corpuscular Volume 93.9 fL (80.0-100.0) Mean Corpuscular Hemoglobin 32.4 pg (28.0-32.0) Mean Corpuscular Hemoglobin Concent 34.5 g/dL (32.0-36.0) Red Cell Distribution Width 13.4 % (11.8-14.3) Platelet Count 161 10^3/uL (140-450) Mean Platelet Volume 8.4 fL (6.9-10.8) Neutrophils (%) (Auto) 80.1 % (37.0-80.0) Lymphocytes (%) (Auto) 13.9 % (10.0-50.0) Monocytes (%) (Auto) 4.7 % (0.0-12.0) Eosinophils (%) (Auto) 1.0 % (0.0-7.0) Basophils (%) (Auto) 0.3 % (0.0-2.0) Neutrophils # (Auto) 12.6 10 ^3/uL (1.6-8.6) Lymphocytes # (Auto) 2.2 10 ^3/uL (0.4-5.4) Monocytes # (Auto) 0.7 10 ^3/uL (0-1.3) Eosinophils # (Auto) 0.1 10 ^3/uL (0-0.8) Basophils # (Auto) 0.1 10 ^3/uL (0-0.2) Nucleated Red Blood Cells 0.1 % Prothrombin Time 9.6 sec (9.3-11.8) Prothrombin Time INR 0.90 (0.9-1.15) Activated Partial Thromboplast Time 26.2 SEC (24.5-34.5) Sodium Level 137 mmol/L (136-145) Potassium Level 3.4 mmol/L (3.5-5.1) Chloride Level 105 mmol/L (98-107) Carbon Dioxide Level 20 mmol/L (20-31) Anion Gap 12 (5-15) Blood Urea Nitrogen 5 mg/dL (9-23) Creatinine 0.58 mg/dL (0.550-1.02) Glomerular Filtration Rate Calc 128 mL/min (>90) BUN/Creatinine Ratio 8.6 (10.0-20.0) Serum Glucose 97 mg/dL (74-106) Calcium Level 9.4 mg/dL (8.7-10.4) Total Bilirubin 0.4 mg/dL (0.2-1.0) Aspartate Amino Transferase (AST) 28 U/L (13-40) Alanine Aminotransferase (ALT) 17 U/L (7-40) Alkaline Phosphatase 138 U/L (46-116) Total Protein 6.1 g/dL (5.7-8.2) Albumin 3.9 g/dL (3.2-4.8) Treponema pallidum Antibody Non-reactive (Negative) Hepatitis C Antibody Negative (Negative) Urine Color Colorless (Yellow) Urine Clarity Turbid (Clear) Urine pH 7.0 (5.0-9.0) Urine Specific [place] 1.005 (1.001-1.035) Urine Protein Trace (Negative) Urine Ketones Negative (Negative) Urine Blood 3+ /uL (Negative) Urine Nitrite Negative (Negative) Urine Bilirubin Negative (Negative) Urine Urobilinogen Normal mg/dL (Negative) Urine Leukocyte Esterase 3+ /uL (Negative) Urine RBC 25 /hpf (0 - 4) Urine WBC Clumps Present /hpf (None Seen) Urine Microscopic WBC 51 /HPF (0-5) Urine Squamous Epithelial Cells Mod /hpf (<5) Urine Bacteria Few /hpf (None Seen) Urine Glucose Normal mg/dL (Normal) Urine Opiates Screen Neg (NEGATIVE) Urine Fentanyl Screen Neg (NEGATIVE) Urine Barbiturates Screen Neg (NEGATIVE) Urine Phencyclidine Screen Neg (NEGATIVE) Urine Amphetamines Screen Neg (NEGATIVE) Urine Benzodiazepines Screen Neg (NEGATIVE) Urine Cocaine Screen Neg (NEGATIVE) Urine Cannabinoids Screen Neg (NEGATIVE) Placental Sphbs-1-Gzuxurubvhrpp Negative Test 09/04/25 23:13 Vaginal WBC (Wet Prep) Few Vaginal RBC (Wet Prep) Moderate Vaginal Epithelial Cells (Wet Prep) Few Vaginal Bacteria (Wet Prep) Moderate Vaginal Trichomonas (Wet Prep) Not present Vaginal Yeast (Wet Prep) None seen Vaginal Clue Cells (Wet Prep) Moderate Other Laboratory Tests 09/06/25 06:00 09/05/25 02:34 Brief Hx & Hospital Course: Patient was brought in for induction subsequently end of the -section stapler discharged home postop day 3. Condition at Discharge: Good Final Diagnosis/Problems List Was section secondary to nonreassuring heart tones. Discharge Disposition: Home Discharge Instruct/Medications Diet: Regular Activity: Light activity Activity comment: Rest 6 weeks no heavy lifting no intercourse. Follow Up/Referral: Fever precautions bleeding precautions pain precautions given; wound check 1-[address] Fulton Medications: Dr. Genevieve Awan called her postop prescriptions into the pharmacy. Scheduled Cephalexin Monohydrate (Cephalexin), 500 MG PO QID Docusate Sodium (Colace), 1 CAP PO BID Scheduled PRN Hydrocodone-Acetaminophen (Hydrocodone/Acetaminophen 10-325 mg), 1 TAB PO Q6HPRN PRN Ibuprofen (Ibuprofen), 800 MG PO TID PRN Discharge Statement: "Patient was advised to return to the ER or call 911 if any headaches, dizziness, shortness of breath, chest pain, abdominal pain, bleeding, fevers, or worsening of medical condition. Patient was counseled about treatment plan, medications, possible side effects, patientverbalized understanding. All questions were answered to the best of my ability. This discharge took greater then 30 minutes in planning, reviewing documentation, counseling the patient, and discussing with other team members." ASSESSMENT ASSESSMENT Assessment same Visit Coding OBGYN Date of Service: Sep 08, 2025 Billing Provider: CHIRAG BOND DO [employer] Common Visit Codes: [id number] INP/OBS CARE(HIGH), 28643-DZN/OBS SAME DATE (LOW), 81265-JYI/OBS SAME DATE (MOD) [employer] SERVICE DISPATCHER Procedure Codes: [id number] OB CARE, DEL BOND,CHIRAG R DO Sep 08, 2025 11:09
== END 2025-09-08 12:43 | disposition home or self-care (01) | DRG 786 ==
LOC: UNDOADMOB 20:44 → LDRP 20:44 → OBSVTOIN 09-05 02:08 → INTOOBSV 09-05 02:08 → LDRP 09-05 02:19
PROVIDERS: ADMIT Obstetrics & Gynecology; ATTEND Obstetrics & Gynecology
PROC: 10D00Z1 Extraction of Products of Conception, Low, Open Approach (ICD-10-PCS; principal; 2025-09-05 14:00)
DX: O41.03X0 Oligohydramnios, third trimester, not applicable or unspecified (principal); O41.1230 Chorioamnionitis, third trimester, not applicable or unspecified; Z37.0 Single live birth; O76 Abnormality in fetal heart rate and rhythm complicating labor and delivery; Z3A.38 38 weeks gestation of pregnancy
CPT/HCPCS: 36415; 59025; 62282; 76805; 76815; 80053; 80307; 81001; 81002; 84112; 85025; 85610; 85730; 86780; 86803; 86850; 86900; 86901; 87210; 94760; 94762; 96360; 96361; 96365; 96374; 96375; G0378; J0131; J0169; J2405; J2590; Q0162